=== PATIENT | female | born 2000 | race Caucasian/White ===

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

== ENCOUNTER 2024-08-24 11:32 | Inpatient (IN) ==
[2024-08-24] MEDS ORDERED: ACETAMINOPHEN 325 MG TAB PO PRN (11:37)
[2024-08-24] MEDS ORDERED: OXYTOCIN 30 UNITS/NSS 30 UNITS/500 ML BAG IV PRN ×3 (11:37→20:11)
[2024-08-24] MEDS ORDERED: CALCIUM CARBONATE 500 MG CHEWABLE TAB PO PRN (11:37)
--- NOTE | 2024-08-24 12:05 | History & Physical Report ---
Date of Service August 24, 2024 Assessment & Plan (1) Irregular uterine contractions: Plan: 23-year-old G1, P0 at 40 weeks of gestation who is presenting today with contractions, not in active labor, Vital signs stable afebrile, heart rate reassuring, Discussed with labor and delivery team who are busy with follow-up patient's, unable to offer her admission and augmentation with oxytocin, offered patient IV fluids and Stadol for pain and see how she does over the next few hours and patient understands and she accepted, All questions were answered, Plan to monitor, start IV fluids and IV Stadol for pain and rest and reevaluate. Admission and Anticipated Discharge Date Admission Date: August 24, 2024 History of Present Illness Primary Care Provider: NO PCP patient is a 23-year-old at 40 weeks of gestation who has been feeling contractions since 00 30 a.m. this morning, she came to labor and delivery and her cervix was check twice 2 hours apart and was 1 cm. she was sent home I recommended to call back with contractions, when day become more often at or less than 5 minutes apart. she states she could not sleep she is waking up with contractions every 5 minutes, denies leakage of fluid or vaginal bleeding. She reports good movements. Her has been uncomplicated except GBS positive. Allergies Allergy/AdvReac Type Severity Reaction Status Date / Time doxycycline Allergy Rash Verified 08/24/24 04:10 Home Medications Medication Instructions Recorded Confirmed Type vits no.126-ferrous fum 1 tab PO DAILY 04/18/24 08/24/24 History 28 mg iron-folic acid 800 mcg tablet (Classic ) sertraline 25 mg tablet 25 mg PO DAILY 04/18/24 08/24/24 History Patient History Medical History Vasovagal syncope Deliberate self-cutting Disruptive mood dysregulation disorder Dysmenorrhea Attention deficit disorder without hyperactivity Concussion OCTOBER 2018 Scoliosis Suicidal overdose HX OF 2017 SELF CUTTING IN THE PAST CURRENTLY IN THERAPY ADHD Hx of syncope DX VASO VAGAL SYNCOPE 10/06/2018 10/29/18 REASON FOR FLUDROCORTISONE PER MOTHER (TO INCREASE HYDRATION) Surgical History H/O wisdom tooth extraction History of nasal surgery bilateral inferior turbinate reduction-01/19/19-Dr. Keating History of surgery Labial frenectomy History of myringotomy History of tonsillectomy History of adenoidectomy Family History Mother Bipolar disorder Thyroid disorder Other No significant family history Social History Smoking Status: Former smoker Tobacco Type: E-cigarettes / Vaping Age Started Using Tobacco: 18; Age Quit Using Tobacco: 23; Second Hand Exposure: Yes; Do You Dip or Chew Tobacco: No; Hx Alcohol Use: No Hx Substance Use: No Preferred Language: [place]al[place] Communication Ability: Effective Equipment Operating Engineer Required: No Beliefs That Will Affect Care: None marital status: Single Current Living Situation: Spouse Current Living Situation Comment: lives with FOB current occupational status: employed current occupation: school teacher Feels Safe at Home: Yes Dental Care, Regularly: Yes Assistive Devices: None Review of Systems as per Subjective / HPI Physical Exam Constitutional: WD/WN, vitals as above well developed, well nourished and comfortable Genitourinary: normal external appearance OB Exam Abdomen: + vertex Manual OB Exam: + cervical dilation 1 cm (1-2), + cervical effacement 80% and + station -2 OB Exam Monitor Tracing: + external uterine monitor used and + category I Results & Data Vital Signs (Past 12 Hours) Vital Signs Pulse BP 08/24/24 11:52 84 138/83
[2024-08-24] MEDS: BUTORPHANOL TARTRATE 2 MG/ML VIAL IV ONE (12:15)
[2024-08-24] MEDS: SODIUM CHLORIDE 0.9% 1,000 ML IV SCH (12:16)
[2024-08-24] MEDS: SODIUM CHLORIDE 0.9% 500 ML IV SCH (13:15)
[2024-08-24] MEDS: NALOXONE HCL 1 MG in SODIUM CHLORIDE 0.9% 1,000 ML IV PRN (13:20)
[2024-08-24] MEDS ORDERED: LIDOCAINE 1% LOCAL 20 ML VIAL INFIL PRN (13:42)
[2024-08-24] MEDS: PENICILLIN GK 6 MU in SODIUM CHLORIDE 0.9% 250 ML IV STA ×2 (13:50→17:22)
[2024-08-24 14:14] LABS: Hematocrit (blood only) 36.8 % (37.0-47.0); Hemoglobin 12.8 g/dl (12.0-16.0); Mean Corpuscular Hemoglobin 29.4 pg (25.0-34.0); Mean Corpuscular Hgb Conc 34.8 g/dL (32.0-36.0); Mean Corpuscular Volume 84.6 fL (80.0-100.0); Mean Platelet Volume 10.3 fL (9.4-12.4); Platelet Count 256 K/uL (130-400); RDW Coefficient of Variation 13.1 % (11.5-14.5); RDW Standard Deviation 39.9 fL (36.4-46.3); Red Blood Count 4.35 M/uL (4.20-5.40); White Blood Count 19.76 K/ul (4.8-10.8)
[2024-08-24] MEDS ORDERED: ROPIVACAINE 0.5% PF 5 MG/ML 20 ML VIAL EPI PRN (14:25)
[2024-08-24] MEDS ORDERED: NALBUPHINE HCL INJ 10 MG/ML AMP IV PRN (14:25)
[2024-08-24] MEDS ORDERED: ePHEDrine sulfate 50 MG/ML AMP IV PRN (14:25)
[2024-08-24] MEDS ORDERED: NALOXONE HCL 0.4 MG/1 ML VIAL/CARP IV PRN (14:25)
[2024-08-24] MEDS ORDERED: BUPIVACAINE 0.25% PF 30 ML VIAL EPI PRN (14:25)
[2024-08-24] MEDS ORDERED: LIDOCAINE 2% MPF LOCAL 5 ML VIAL EPI PRN (14:25)
[2024-08-24] MEDS ORDERED: SODIUM CHLORIDE 0.9% PF INJ 10 ML VIAL EPI PRN (14:25)
[2024-08-24] MEDS ORDERED: fentaNYL citrate PF 100 MCG/2 ML VIAL EPI PRN (14:25)
[2024-08-24] MEDS ORDERED: diphenhydrAMINE 50 MG/ML VIAL IV PRN (14:25)
--- NOTE | 2024-08-24 14:25 | Anesthesiology Consultation ---
Date of Service August 24, 2024 Assessment & Plan Chart Review Chart Review: Acceptable Risk for Labor Epidural Consults Requested none History Height/Weight Height: 5 ft 9 in Weight: 91.626 kg Allergies Allergy/AdvReac Type Severity Reaction Status Date / Time doxycycline Allergy Rash Verified 08/24/24 04:10 Medications Home Medications Medication Instructions Recorded Confirmed Last Taken vits no.126-ferrous fum 1 tab PO DAILY 04/18/24 08/24/24 08/23/24 28 mg iron-folic acid 800 mcg tablet (Classic ) sertraline 25 mg tablet 25 mg PO DAILY 04/18/24 08/24/24 08/24/24 Past Medical History Medical History Vasovagal syncope Deliberate self-cutting Disruptive mood dysregulation disorder Dysmenorrhea Attention deficit disorder without hyperactivity Concussion OCTOBER 2018 Scoliosis Suicidal overdose HX OF 2017 SELF CUTTING IN THE PAST CURRENTLY IN THERAPY ADHD Hx of syncope DX VASO VAGAL SYNCOPE 10/06/2018 10/29/18 REASON FOR FLUDROCORTISONE PER MOTHER (TO INCREASE HYDRATION) Past Family History Family History Mother Bipolar disorder Thyroid disorder Other No significant family history Past Surgical History Surgical History H/O wisdom tooth extraction History of nasal surgery bilateral inferior turbinate reduction-01/19/19-Dr. Keating History of surgery Labial frenectomy History of myringotomy History of tonsillectomy History of adenoidectomy Social History Smoking Status: Former smoker tobacco type: e-cigarettes Do You Dip or Chew Tobacco: No Hx Alcohol Use: No Hx Substance Use: No substance use type: marijuana Substance Use Type Other:: MARIJUANA IN THE PAST (TRIED MOTHER'S DAY AND GOT SICK PER MOTHER) Physical Exam Vital Signs Last Vital Signs Temp 36.5 C 08/24/24 13:50 Pulse 80 08/24/24 13:56 Resp 18 08/24/24 13:50 BP 136/85 08/24/24 13:56 Testing Laboratory Results 08/24/24 13:57
[2024-08-24] MEDS: fentANYL 2 MCG/ML BUPIVacaine 0.125%-NSS 100ML BAG EPI PRN (14:48)
[2024-08-24] MEDS: LIDOCAINE 2%/EPINEPHRINE 1:200,000 20 ML PF EPI STA (14:48)
[2024-08-24] MEDS: ONDANSETRON INJ 2 MG/ML 2 ML VIAL ONE (15:28)
--- NOTE | 2024-08-24 15:49 | Obstetrical Progress Note ---
Date of Service August 24, 2024 Assessment & Plan Admission and Anticipated Discharge Date Admission Date: August 24, 2024 Subjective Late entry from 13:45 Patient woke up with pain and her cervix has changed to4 cm and head was lower per her nurse Plan to melvin PCN for GBS Epidural for pain Anticipate Note: on initial encounter I performed bed side US, Vertex, DAMON 18 cm Results & Data Vital Signs (Past 12 Hours) Vital Signs Temp Pulse Resp BP Pulse Ox 08/24/24 15:44 77 99 08/24/24 15:42 78 125/79 08/24/24 15:39 81 99 08/24/24 15:34 81 97 08/24/24 15:30 18 08/24/24 15:30 18 08/24/24 15:29 82 100 08/24/24 15:28 74 118/69 08/24/24 15:24 79 100 08/24/24 15:19 78 100 08/24/24 15:14 82 100 08/24/24 15:09 79 100 08/24/24 15:04 79 100 08/24/24 14:59 83 99 08/24/24 14:57 80 113/63 08/24/24 14:55 78 121/64 08/24/24 14:54 86 98 08/24/24 14:53 87 123/63 08/24/24 14:52 83 89 L 08/24/24 14:51 82 118/63 08/24/24 14:49 85 119/62 98 08/24/24 14:46 84 119/61 08/24/24 14:44 91 H 99 08/24/24 14:39 100 H 99 08/24/24 14:35 89 93 08/24/24 14:34 88 100 08/24/24 14:29 79 100 08/24/24 13:56 80 136/85 08/24/24 13:50 36.5 C 18 08/24/24 11:52 84 138/83
[2024-08-24] MEDS: OXYTOCIN 30 UNITS/NSS 30 UNITS/500 ML BAG IV PRN (16:01)
[2024-08-24] MEDS ORDERED: PENICILLIN GK 3 MU in DEXTROSE 5% 100 ML IV PRN (16:42)
[2024-08-24] MEDS: PENICILLIN GK 3 MU in DEXTROSE 5% 100 ML IV PRN (17:20)
[2024-08-24] MEDS: BUPIVACAINE 0.25% PF 30 ML VIAL ONE (17:22)
[2024-08-24] MEDS: BUPIVACAINE 0.25% PF 30 ML VIAL EPI STA (17:22)
[2024-08-24] MEDS: SODIUM CHLORIDE 0.9% PF INJ 10 ML VIAL EPI STA (17:22)
[2024-08-24] MEDS: fentaNYL citrate PF 100 MCG/2 ML VIAL EPI STA (17:22)
[2024-08-24] MEDS: LIDOCAINE 2%/EPINEPHRINE 1:200,000 20 ML PF ONE (17:23)
[2024-08-24] MEDS: fentaNYL citrate PF 100 MCG/2 ML VIAL ONE (17:23)
[2024-08-24] MEDS: ePHEDrine sulfate 50 MG/ML AMP ONE (17:23)
[2024-08-24] MEDS: SODIUM CHLORIDE 0.9% PF INJ 10 ML VIAL ONE (17:23)
[2024-08-24] MEDS: fentANYL 2 MCG/ML BUPIVacaine 0.125%-NSS 100ML BAG ONE (17:23)
[2024-08-24] MEDS ORDERED: SODIUM CHLORIDE 0.9% 1,000 ML IV SCH (17:30)
--- NOTE | 2024-08-24 18:11 | Obstetrical Progress Note ---
Date of Service August 24, 2024 Assessment & Plan Admission and Anticipated Discharge Date Admission Date: August 24, 2024 Subjective Patient is comfortable FHR categ I 2nd dose of PCN is almost finished VE; 7/ 80%/ 0, AROM'ed clear fluid Continue to monitor closely Anticipate Results & Data Vital Signs (Past 12 Hours) Vital Signs Temp Pulse Resp BP Pulse Ox 08/24/24 18:04 85 100 08/24/24 17:59 83 97 08/24/24 17:57 78 128/75 08/24/24 17:54 81 99 08/24/24 17:49 81 99 08/24/24 17:44 86 99 08/24/24 17:42 85 130/79 08/24/24 17:39 77 99 08/24/24 17:34 85 99 08/24/24 17:32 89 87 L 08/24/24 17:29 76 100 08/24/24 17:28 80 137/76 08/24/24 17:24 80 98 08/24/24 17:20 36.7 C 08/24/24 17:19 84 97 08/24/24 17:14 76 98 08/24/24 17:09 72 99 08/24/24 17:04 93 H 99 08/24/24 16:59 83 98 08/24/24 16:57 88 125/73 08/24/24 16:54 81 99 08/24/24 16:49 74 98 08/24/24 16:44 83 100 08/24/24 16:42 79 125/75 08/24/24 16:39 90 100 08/24/24 16:34 95 H 99 08/24/24 16:29 85 96 08/24/24 16:27 85 124/72 08/24/24 16:24 78 97 08/24/24 16:19 79 99 08/24/24 16:14 81 98 08/24/24 16:12 77 123/74 08/24/24 16:09 80 98 08/24/24 16:04 80 99 08/24/24 16:00 18 08/24/24 16:00 18 08/24/24 15:59 77 100 08/24/24 15:57 83 128/83 08/24/24 15:54 79 98 08/24/24 15:49 78 100 08/24/24 15:44 77 99 01/17/25 15:42 78 125/79 08/24/24 15:39 81 99 08/24/24 15:34 81 97 08/24/24 15:30 36.8 C 08/24/24 15:30 18 08/24/24 15:30 18 08/24/24 15:29 82 100 08/24/24 15:28 74 118/69 08/24/24 15:24 79 100 08/24/24 15:19 78 100 08/24/24 15:14 82 100 08/24/24 15:09 79 100 08/24/24 15:04 79 100 08/24/24 14:59 83 99 08/24/24 14:57 80 113/63 08/24/24 14:55 78 121/64 08/24/24 14:54 86 98 08/24/24 14:53 87 123/63 08/24/24 14:52 83 89 L 08/24/24 14:51 82 118/63 08/24/24 14:49 85 119/62 98 08/24/24 14:46 84 119/61 08/24/24 14:44 91 H 99 08/24/24 14:39 100 H 99 08/24/24 14:35 89 93 08/24/24 14:34 88 100 08/24/24 14:29 79 100 08/24/24 13:56 80 136/85 08/24/24 13:50 36.5 C 18 08/24/24 11:52 84 138/83
[2024-08-24] MEDS ORDERED: HYDROCORTISONE ACETATE 25 MG SUPP PR PRN (20:11)
[2024-08-24] MEDS ORDERED: oxyCODONE/ACETAMINOPHEN 5mg/325mg TAB PO PRN (20:11)
[2024-08-24] MEDS ORDERED: BENZOCAINE 20% SPRY 85 APPLN/85 GM CAN EXT PRN (20:11)
[2024-08-24] MEDS ORDERED: bisacodyL 10 MG SUPP PR PRN (20:11)
--- NOTE | 2024-08-24 20:15 | Delivery Summary ---
Vaginal Delivery Summary Date of Service August 24, 2024 Vaginal Delivery Summary Patient was found to be fully dilated and desires to push. She pushed with 4 contractions only and delivered the head and then shoulders spontaneously without traction. Nuchal cordx2, reduced. The baby was handed off to the mother. The cord was clampedx2 and cut at 1 minute. The vagina and perineum were checked and found to have 2nd degree perineal laceration. Rectal exam was done and noted good sphincter tone. The gloves were changes. Perineal body muscles around the sphincter were held with 2 Allis clamps and brought to the midline and reapproximated with [id number] stitches with 2-0 Vicryl x 2. Rectal exam was repeated even stronger sphincter tone and injury integrity noted, no sutures were felt. The gloves were changed again. The vaginal mucosa was repaired with 2/0 vicryl and skin on subcuticular fashion. The placenta was delivered spontaneously as intact and complete. The uterus was explored and found to be empty. QBL was 353 ml. The fundus was firm The baby was a viable female , Apgars 9/9, the weight is pending The mother and the baby tolerated the procedure well. No complications happened and I was present during whole procedure.
--- NOTE | 2024-08-24 20:35 | Anesthesia Procedure Note ---
Date of Service August 24, 2024 Anesthesia Post Epidural Note Vital Signs Vital Signs: Temp Pulse Resp BP Pulse Ox 36.9 C 100 H 18 128/64 96 08/24/24 19:00 08/24/24 20:27 08/24/24 20:12 08/24/24 20:27 08/24/24 19:59 Pain Intensity Abdomen: Pain Intensity: 8 Notes Mental Status: alert / awake / arousable and participated in evaluation Nausea / Vomiting: adequately controlled Pain: adequately controlled Airway Patency, RR, SpO2: stable & adequate BP & HR: stable & adequate Hydration State: stable & adequate Neuraxial Anesthesia: was administered and sensory block is resolving Anesthetic Complications: no major complications apparent and Pt Satisfied with anesthetic care Epidural: Removed without complications and With tip intact
[2024-08-24] MEDS: IBUPROFEN 600 MG TAB PO PRN (21:15)
[2024-08-24] MEDS: DOCUSATE SODIUM 100 MG CAP PO SCH (21:36)
[2024-08-24] MEDS: LIDOCAINE 1% LOCAL 20 ML VIAL INFIL PRN (22:08)
[2024-08-25] MEDS: ACETAMINOPHEN 325 MG TAB PO PRN (00:10)
[2024-08-25 06:41] LABS: Hematocrit (blood only) 30.8 % (37.0-47.0); Hemoglobin 10.6 g/dl (12.0-16.0); Mean Corpuscular Hemoglobin 29.3 pg (25.0-34.0); Mean Corpuscular Hgb Conc 34.4 g/dL (32.0-36.0); Mean Corpuscular Volume 85.1 fL (80.0-100.0); Mean Platelet Volume 10.2 fL (9.4-12.4); Platelet Count 211 K/uL (130-400); RDW Coefficient of Variation 13.3 % (11.5-14.5); RDW Standard Deviation 41.1 fL (36.4-46.3); Red Blood Count 3.62 M/uL (4.20-5.40); White Blood Count 18.64 K/ul (4.8-10.8)
[2024-08-25] MEDS: PRENATAL VITAMIN 1 TAB PO SCH (08:18)
[2024-08-25] MEDS: FERROUS SULFATE 325 MG TAB PO SCH (08:18)
[2024-08-25] MEDS ORDERED: Nursing to Pharmacy Communication SCH (08:30)
--- NOTE | 2024-08-25 08:35 | Obstetrical Progress Note ---
Date of Service August 25, 2024 Subjective Ambulation: ambulating normally Voiding: no voiding problems Passing Gas:: Yes Diet Tolerance:: regular diet Lochia:: Small Feeding Type:: breast feeding Current Pain Level(1-10): 0 doing well. plans for d/c in AM. Physical Exam Constitutional WD/WN, vitals as above Gastrointestinal (Abdomen) Inspection/Auscultation: abdomen normal to inspection Musculoskeletal Extremities: extremities normal to inspection Skin no rashes, warm and dry Neurologic patellar DTR's 2+ bilat, sensation intact Psychiatric A+Ox3, euthymic affect Results & Data Vital Signs (Past 12 Hours) Vital Signs Temp Pulse Resp BP Pulse Ox 08/25/24 03:30 37.1 C 77 16 117/76 08/24/24 23:00 37.2 C 77 16 109/65 98 08/24/24 21:57 16 08/24/24 21:57 117 H 125/64 08/24/24 21:42 100 H 123/61 08/24/24 21:27 16 08/24/24 21:27 100 H 129/69 08/24/24 21:12 91 H 122/68 08/24/24 20:57 16 08/24/24 20:57 88 125/64 08/24/24 20:42 16 08/24/24 20:42 82 126/64 Laboratory Results Laboratory Results - last 72 hr 08/24/24 08/25/24 13:57 06:13 WBC 19.76 H 18.64 H RBC 4.35 3.62 L Hgb 12.8 10.6 L Hct 36.8 L 30.8 L MCV 84.6 85.1 MCH 29.4 29.3 MCHC 34.8 34.4 RDW Std Deviation 39.9 41.1 RDW Coeff of Shiv 13.1 13.3 Plt Count 256 211 MPV 10.3 10.2 Treponema pallidum Ab Negative
[2024-08-25] MEDS ORDERED: SERTRALINE HCL 50 MG TABLET PO SCH (09:00)
[2024-08-25] MEDS ORDERED: [UNRECOGNIZED DRUG - REMARK] PO SCH (09:00)
[2024-08-25] MEDS: DIPHTHER/TETAN/PERTUS Vaccine (Tdap, Adol/Adult) 0.5mL IM ONE (18:09)
[2024-08-25] MEDS: MEASLES, MUMPS & RUBELLA VIRUS VACCINE (MMR) 0.5ML VIAL SQ ONE (18:09)
[2024-08-25] MEDS: bisacodyL 5 MG TABEC PO SCH (20:25)
[2024-08-25 20:27] VITALS: RESP 16
[2024-08-25] MEDS: SERTRALINE HCL 50 MG TABLET PO SCH (21:31)
[2024-08-26 07:24] LABS: Hematocrit (blood only) 33.8 % (37.0-47.0); Hemoglobin 11.4 g/dl (12.0-16.0)
[2024-08-26 07:28] VITALS: BP 101/65; PULSE 81; TEMP 98.8; O2SAT 96
--- NOTE | 2024-08-26 09:29 | Obstetrical Progress Note ---
Date of Service August 26, 2024 Subjective Ambulation: ambulating normally Voiding: no voiding problems Passing Gas:: Yes Diet Tolerance:: regular diet Feeding Type:: breast feeding Current Pain Level(1-10): 0 doing well. plans for d/c. Physical Exam Constitutional WD/WN, vitals as above Gastrointestinal (Abdomen) Inspection/Auscultation: abdomen normal to inspection abdomen soft and non-tender. fundus firm below U. Musculoskeletal Extremities: extremities normal to inspection Skin no rashes, warm and dry Neurologic patellar DTR's 2+ bilat, sensation intact Psychiatric A+Ox3, euthymic affect Results & Data Vital Signs (Past 12 Hours) Vital Signs Temp Pulse Resp BP Pulse Ox O2 Del Method 08/26/24 07:21 37.1 C 81 16 101/65 96 Room Air Laboratory Results 08/24/24 08/25/24 08/26/24 13:57 06:13 07:09 WBC 19.76 H 18.64 H RBC 4.35 3.62 L Hgb 12.8 10.6 L 11.4 L Hct 36.8 L 30.8 L 33.8 L MCV 84.6 85.1 MCH 29.4 29.3 MCHC 34.8 34.4 RDW Std Deviation 39.9 41.1 RDW Coeff of Shiv 13.1 13.3 Plt Count 256 211 MPV 10.3 10.2 Treponema pallidum Ab Negative
== END 2024-08-26 10:15 | disposition home or self-care (01) | DRG 807 ==
LOC: OPB 11:32 → 4S1 11:34 → 4E2 22:39